=== PATIENT | male | born 1985 | race Caucasian/White ===

== ENCOUNTER 2020-11-11 07:01 | Emergency (ER) | payer SELFPAY ==
[~2020-11-11] VITALS: Ht 177.8 cm; Wt 49.9 kg
== END 2020-11-11 11:15 | disposition home or self-care (01) ==
LOC: ED 07:01
DX: E16.2 Hypoglycemia, unspecified (principal); F10.20 Alcohol dependence, uncomplicated; Y90.6 Blood alcohol level of 120-199 mg/100 ml; Z20.822 Contact with and (suspected) exposure to COVID-19; Z88.8 Allergy status to other drugs, medicaments and biological substances
CPT/HCPCS: 71045; 80053; 81001; 83690; 85025; 96374; 99285-25; C9803; G0480; J3411; J7121; U0003

== ENCOUNTER 2020-11-19 15:32 | Emergency (ER) | payer SELFPAY ==
[~2020-11-19] VITALS: Ht 177.8 cm; Wt 63.5 kg
--- OUTSIDE RECORDS SUMMARY | 2020-11-19 15:40 | XMS ---
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 E.[facility]on VIS[facility] (12 MO.) [facility] [address] [place] [address] TOTAL 3 NOTE: Visits indicate total known visits. ED/UCC VISIT TRACKING (12 MO.) 11/19/2020 15:33 ANGELICA Lopes TYPE: Emergency COMPLAINT: - LOWER ABD PAIN, N/V 11/11/2020 07:01 ANGELICA Diaz [place] TYPE: Emergency COMPLAINT: - NAUSEA DIAGNOSES: - Hypoglycemia, unspecified - Allergy status to other drugs, medicaments and biological substances - Alcohol dependence, uncomplicated - Blood alcohol level of 120-199 mg/100 ml 04/08/2020 07:56 [facility] REED TYPE: Emergency DIAGNOSES: - Acute bronchitis, unspecified - Chest Pressure; SOB; Nausea; Cough - Wheezing - Vomiting (Severe) - Chest Pressure INPATIENT VISIT TRACKING (12 MO.) No inpatient visits to display in this time frame [email or web address]
[2020-11-19] MEDS ORDERED: FLOMAX0.4 MG PO (18:40)
[2020-11-19] MEDS ORDERED: ONDANSETRON ODT4 MG PO (18:40)
[2020-11-19] MEDS ORDERED: HYDROCODON-ACE1 EA10 PO (18:40)
== END 2020-11-19 18:58 | disposition home or self-care (01) ==
LOC: ED 15:32
DX: N13.2 Hydronephrosis with renal and ureteral calculous obstruction (principal); Z88.8 Allergy status to other drugs, medicaments and biological substances
CPT/HCPCS: 74176; 80053; 81001; 83690; 85025; 99284-25